=== PATIENT | male | born 1980 | race Caucasian/White ===

== ENCOUNTER 2021-03-10 11:26 | Inpatient (IN) ==
[2021-03-10 17:35] LABS: Basophils % 0.1 % (0.0-0.8); Hematocrit 42.5 VOL% (42.0-52.0); Hemoglobin 14.4 GM/DL (14.0-18.0); Immature Granulocytes Absolute 0.16 #; Lymphocytes # 0.8 10*3/uL (1.4-4.0); Lymphocytes % 5.1 % (21.2-54.2); Mean Corpuscular HGB Conc 33.9 GM/DL (32-36); Mean Corpuscular Volume 88.2 FL (87-102); Monocytes % 2.7 % (1.7-12.7); Neutrophils % 91.1 % (38.7-73.9); Platelet Count 433 T/CUMM (130-400); Red Blood Count 4.82 MC/CUMM (3.8-5.5); Red Cell Distribution Width 12.3 % (9.3-17.3); White Blood Count 15.6 T/CUMM (4-12)
[2021-03-10 17:57] LABS: Lymphocytes 5 % (20-55); Microcytosis Slight; Platelet Estimate Increased; Segmented Neutrophils 92 % (50-85); Total Cells Counted 100
[2021-03-10 18:01] LABS: Albumin 3.2 G/DL (3.4-5.0); Bilirubin,Total 0.4 MG/DL (0.20-1.00); Osmolality,Calculated 274.1 MOS/KG (273-304); Potassium 4.4 MMOL/L (3.5-5.1); Total Protein 7.8 G/DL (6.4-8.2)
[2021-03-10 18:12] LABS: Bilirubin,Urine Negative (Negative); Blood, Urine Small mg/dL (Negative); Glucose,Urine (UA) Negative (Negative); Ketones,Urine Negative (Negative); Mucus,Urine Occasional /LPF (Occasional); Nitrite,Urine Negative (Negative); Protein,Urine 100 MG/DL; RBC,Urine 3 /HPF (0-4); Urine Appearance CLEAR (Clear); Urine Color Amber (Yellow); Urine Specific Gravity 1.033 (1.001-1.035)
[2021-03-10 18:15] LABS: Barbiturates Screen,Urine Negative (Negative); Benzodiazepines Screen,Urine Negative (Negative); Cannabinoid Screen,Urine Negative (Negative); Opiate Screen,Urine Negative (Negative); Phencyclidine Screen,Urine Negative (Negative)
[2021-03-10 18:22] LABS: Ferritin 963.8 ng/ml (26-388)
[2021-03-10] MEDS ORDERED: GLUCAGON 1 MG VIAL IM PRN (18:31)
[2021-03-10] MEDS ORDERED: DEXTROSE 50% 25 GM/50 ML VIAL IV PRN (18:31)
[2021-03-10] MEDS ORDERED: ONDANSETRON 4 MG/2 ML VIAL IV PRN (18:31)
[2021-03-10] MEDS ORDERED: ACETAMINOPHEN 325 MG TABLET PO PRN (18:31)
[2021-03-10] MEDS ORDERED: REMDESIVIR 200 MG in SODIUM CHLORIDE 0.9% 210 ML IV ONE (19:00)
[2021-03-10] MEDS: cefTRIAXone 2,000 MG in SODIUM CHLORIDE 0.9% 100 ML IV SCH (19:26)
[2021-03-10] MEDS ORDERED: ALBUTEROL/IPRATROPIUM 3 ML NEB RESP TX ONE (19:30)
[2021-03-10] MEDS: ENOXAPARIN 40 MG/0.4 ML SYRINGE SUBCUT SCH (21:46)
[2021-03-11 04:51] LABS: Basophils % 0.3 % (0.0-0.8); Eosinophils % 0.3 % (0.00-10.9); Hematocrit 40.6 VOL% (42.0-52.0); Hemoglobin 13.9 GM/DL (14.0-18.0); Lymphocytes # 0.8 10*3/uL (1.4-4.0); Lymphocytes % 5.3 % (21.2-54.2); Mean Corpuscular HGB Conc 34.2 GM/DL (32-36); Mean Corpuscular Volume 90.6 FL (87-102); Mean Platelet Volume 9.2 FL (9.6-12.0); Monocytes % 2.8 % (1.7-12.7); Neutrophils % 89.3 % (38.7-73.9); Platelet Count 392 T/CUMM (130-400); Red Blood Count 4.48 MC/CUMM (3.8-5.5); Red Cell Distribution Width 12.1 % (9.3-17.3); White Blood Count 14.7 T/CUMM (4-12)
[2021-03-11 05:05] LABS: Calcium 8.4 MG/DL (8.5-10.1); Osmolality,Calculated 282.4 MOS/KG (273-304); Potassium 4.8 MMOL/L (3.5-5.1)
[2021-03-11 05:17] LABS: Ferritin 993.4 ng/ml (26-388)
[2021-03-11] MEDS: ZINC SULFATE 220 MG CAPSULE PO SCH (08:50)
[2021-03-11] MEDS: AZITHROMYCIN 250 MG TABLET PO SCH (08:50)
[2021-03-11] MEDS: FAMOTIDINE 20 MG TABLET PO SCH ×3 (08:50→20:36)
[2021-03-11] MEDS: DEXAMETHASONE 10 MG/1 ML VIAL IV SCH ×4 (08:50→20:37)
[2021-03-11] MEDS: ASCORBIC ACID 500 MG TABLET PO SCH ×2 (08:50→20:37)
[2021-03-11] MEDS: CHOLECALCIFEROL 5,000 UNIT TABLET PO SCH (08:50)
[2021-03-11] MEDS: CETIRIZINE 10 MG TABLET PO SCH (08:50)
[2021-03-11] MEDS ORDERED: DEXAMETHASONE INJ 10 MG in SODIUM CHLORIDE 0.9% 50 ML IV SCH (09:00)
[2021-03-11] MEDS: ALBUTEROL INHALER 18 GM INH SCH ×3 (09:30→20:38)
[2021-03-11 09:40] LABS: Alanine Aminotransferase 50 U/L (16-61); Aspartate Amino Transferase 44 U/L (0-37)
[2021-03-11] MEDS: IVERMECTIN 3 MG TABLET PO SCH (16:50)
[2021-03-11] MEDS ORDERED: DEXAMETHASONE 10 MG/1 ML VIAL IV SCH (18:00)
[2021-03-11] MEDS ORDERED: REMDESIVIR 100 MG in SODIUM CHLORIDE 0.9% 100 ML IV SCH (19:00)
[2021-03-11] MEDS: cefTRIAXone 2,000 MG in SODIUM CHLORIDE 0.9% 100 ML IV SCH (20:35)
[2021-03-11] MEDS: MELATONIN 3 MG TABLET PO SCH (20:36)
[2021-03-11] MEDS: ENOXAPARIN 40 MG/0.4 ML SYRINGE SUBCUT SCH (20:36)
[2021-03-12] MEDS: ALBUTEROL INHALER 18 GM INH SCH ×4 (00:05→18:18)
[2021-03-12] MEDS: DEXAMETHASONE 10 MG/1 ML VIAL IV SCH ×6 (00:05→20:27)
[2021-03-12 06:56] LABS: Basophils # 0.1 10*3/uL (0.0-0.2); Basophils % 0.6 % (0.0-0.8); Hemoglobin 14.3 GM/DL (14.0-18.0); Immature Granulocytes % 5.3 %; Immature Granulocytes Absolute 0.64 #; Lymphocytes # 0.9 10*3/uL (1.4-4.0); Lymphocytes % 7.6 % (21.2-54.2); Mean Corpuscular HGB Conc 34.9 GM/DL (32-36); Mean Corpuscular Volume 88.9 FL (87-102); Mean Platelet Volume 9.4 FL (9.6-12.0); Monocytes % 3.6 % (1.7-12.7); Neutrophils % 82.9 % (38.7-73.9); Platelet Count 526 T/CUMM (130-400); Red Blood Count 4.61 MC/CUMM (3.8-5.5); Red Cell Distribution Width 11.9 % (9.3-17.3); White Blood Count 12.1 T/CUMM (4-12)
[2021-03-12 07:13] LABS: Calcium 8.8 MG/DL (8.5-10.1); Osmolality,Calculated 279.8 MOS/KG (273-304); Potassium 4.2 MMOL/L (3.5-5.1)
[2021-03-12 07:16] LABS: Ferritin 997.4 ng/ml (26-388)
[2021-03-12 07:32] LABS: Band Neutrophils 1 % (0-10); Lymphocytes 8 % (20-55); Segmented Neutrophils 85 % (50-85); Total Cells Counted 100
[2021-03-12 07:33] LABS: Microcytosis 1+
[2021-03-12 07:34] LABS: Alanine Aminotransferase 40 U/L (16-61); Aspartate Amino Transferase 24 U/L (0-37)
[2021-03-12] MEDS: FAMOTIDINE 20 MG TABLET PO SCH ×2 (08:25→20:27)
[2021-03-12] MEDS: AZITHROMYCIN 250 MG TABLET PO SCH (08:26)
[2021-03-12] MEDS: ZINC SULFATE 220 MG CAPSULE PO SCH (08:26)
[2021-03-12] MEDS: ASCORBIC ACID 500 MG TABLET PO SCH ×2 (08:26→20:27)
[2021-03-12] MEDS: guaiFENesin/DM ER 600-30 MG TABLET PO PRN (08:26)
[2021-03-12] MEDS: CHOLECALCIFEROL 5,000 UNIT TABLET PO SCH (08:26)
[2021-03-12] MEDS: CETIRIZINE 10 MG TABLET PO SCH (08:26)
[2021-03-12] MEDS: IVERMECTIN 3 MG TABLET PO SCH (10:24)
[2021-03-12] MEDS: ENOXAPARIN 40 MG/0.4 ML SYRINGE SUBCUT SCH (18:17)
[2021-03-12] MEDS: cefTRIAXone 2,000 MG in SODIUM CHLORIDE 0.9% 100 ML IV SCH (18:18)
[2021-03-12] MEDS: MELATONIN 3 MG TABLET PO SCH (20:27)
[2021-03-13] MEDS: ALBUTEROL INHALER 18 GM INH SCH ×4 (01:05→18:20)
[2021-03-13] MEDS: DEXAMETHASONE 10 MG/1 ML VIAL IV SCH ×6 (02:05→20:46)
[2021-03-13 06:33] LABS: Basophils # 0.1 10*3/uL (0.0-0.2); Basophils % 0.6 % (0.0-0.8); Hematocrit 40.9 VOL% (42.0-52.0); Hemoglobin 14.5 GM/DL (14.0-18.0); Immature Granulocytes % 7.6 %; Immature Granulocytes Absolute 1.32 #; Lymphocytes # 1.4 10*3/uL (1.4-4.0); Lymphocytes % 8.1 % (21.2-54.2); Mean Corpuscular HGB Conc 35.5 GM/DL (32-36); Mean Corpuscular Volume 88.3 FL (87-102); Mean Platelet Volume 9.5 FL (9.6-12.0); Monocytes % 3.7 % (1.7-12.7); Platelet Count 621 T/CUMM (130-400); Red Blood Count 4.63 MC/CUMM (3.8-5.5); Red Cell Distribution Width 11.9 % (9.3-17.3); White Blood Count 17.4 T/CUMM (4-12)
[2021-03-13 07:01] LABS: Calcium 8.8 MG/DL (8.5-10.1); Osmolality,Calculated 284.5 MOS/KG (273-304); Potassium 4.1 MMOL/L (3.5-5.1)
[2021-03-13 07:04] LABS: Anisocytosis Slight; Band Neutrophils 7 % (0-10); Lymphocytes 13 % (20-55); Metamyelocytes 4 %; Platelet Estimate Increased; Segmented Neutrophils 70 % (50-85); Total Cells Counted 100
[2021-03-13] MEDS: CHOLECALCIFEROL 5,000 UNIT TABLET PO SCH (09:15)
[2021-03-13] MEDS: guaiFENesin/DM ER 600-30 MG TABLET PO PRN (09:15)
[2021-03-13] MEDS: AZITHROMYCIN 250 MG TABLET PO SCH (09:15)
[2021-03-13] MEDS: ZINC SULFATE 220 MG CAPSULE PO SCH (09:16)
[2021-03-13] MEDS: ASCORBIC ACID 500 MG TABLET PO SCH ×2 (09:16→20:46)
[2021-03-13] MEDS: CETIRIZINE 10 MG TABLET PO SCH (09:16)
[2021-03-13] MEDS: IVERMECTIN 3 MG TABLET PO SCH (09:16)
[2021-03-13] MEDS: FAMOTIDINE 20 MG TABLET PO SCH ×2 (09:16→20:46)
[2021-03-13] MEDS: cefTRIAXone 2,000 MG in SODIUM CHLORIDE 0.9% 100 ML IV SCH (18:20)
[2021-03-13] MEDS: ENOXAPARIN 40 MG/0.4 ML SYRINGE SUBCUT SCH (18:20)
[2021-03-13] MEDS: MELATONIN 3 MG TABLET PO SCH (20:46)
[2021-03-14] MEDS: DEXAMETHASONE 10 MG/1 ML VIAL IV SCH ×6 (01:35→22:09)
[2021-03-14] MEDS: ALBUTEROL INHALER 18 GM INH SCH ×4 (01:38→22:11)
[2021-03-14] MEDS: FAMOTIDINE 20 MG TABLET PO SCH ×2 (09:11→22:10)
[2021-03-14] MEDS: IVERMECTIN 3 MG TABLET PO SCH (09:11)
[2021-03-14] MEDS: CETIRIZINE 10 MG TABLET PO SCH (09:11)
[2021-03-14] MEDS: ZINC SULFATE 220 MG CAPSULE PO SCH (09:11)
[2021-03-14] MEDS: AZITHROMYCIN 250 MG TABLET PO SCH (09:11)
[2021-03-14] MEDS: ASCORBIC ACID 500 MG TABLET PO SCH ×2 (09:11→22:10)
[2021-03-14] MEDS: CHOLECALCIFEROL 5,000 UNIT TABLET PO SCH (09:12)
[2021-03-14] MEDS: cefTRIAXone 2,000 MG in SODIUM CHLORIDE 0.9% 100 ML IV SCH (22:09)
[2021-03-14] MEDS: MELATONIN 3 MG TABLET PO SCH (22:10)
[2021-03-14] MEDS: guaiFENesin/DM ER 600-30 MG TABLET PO PRN (22:10)
[2021-03-14] MEDS: ENOXAPARIN 40 MG/0.4 ML SYRINGE SUBCUT SCH (22:10)
[2021-03-15] MEDS: DEXAMETHASONE 10 MG/1 ML VIAL IV SCH ×6 (02:24→23:50)
[2021-03-15] MEDS: ALBUTEROL INHALER 18 GM INH SCH ×4 (02:25→19:28)
[2021-03-15] MEDS: CHOLECALCIFEROL 5,000 UNIT TABLET PO SCH (08:38)
[2021-03-15] MEDS: ASCORBIC ACID 500 MG TABLET PO SCH ×2 (08:39→20:40)
[2021-03-15] MEDS: CETIRIZINE 10 MG TABLET PO SCH (08:39)
[2021-03-15] MEDS: ZINC SULFATE 220 MG CAPSULE PO SCH (08:39)
[2021-03-15] MEDS: IVERMECTIN 3 MG TABLET PO SCH (08:39)
[2021-03-15] MEDS: FAMOTIDINE 20 MG TABLET PO SCH ×2 (08:40→20:40)
[2021-03-15] MEDS: AZITHROMYCIN 250 MG TABLET PO SCH (09:42)
[2021-03-15] MEDS: ENOXAPARIN 40 MG/0.4 ML SYRINGE SUBCUT SCH (20:40)
[2021-03-15] MEDS: MELATONIN 3 MG TABLET PO SCH (20:40)
[2021-03-15] MEDS: cefTRIAXone 2,000 MG in SODIUM CHLORIDE 0.9% 100 ML IV SCH (20:40)
[2021-03-16] MEDS: ALBUTEROL INHALER 18 GM INH SCH ×2 (01:18→08:45)
[2021-03-16] MEDS: CETIRIZINE 10 MG TABLET PO SCH (08:44)
[2021-03-16] MEDS: CHOLECALCIFEROL 5,000 UNIT TABLET PO SCH (08:44)
[2021-03-16] MEDS: ASCORBIC ACID 500 MG TABLET PO SCH (08:44)
[2021-03-16] MEDS: DEXAMETHASONE 10 MG/1 ML VIAL IV SCH (08:44)
[2021-03-16] MEDS: FAMOTIDINE 20 MG TABLET PO SCH (08:44)
[2021-03-16] MEDS: ZINC SULFATE 220 MG CAPSULE PO SCH (08:44)
[2021-03-16 12:36] VITALS: BP 125/77
== END 2021-03-16 15:55 | disposition home or self-care (01) | DRG 177 ==
LOC: N.ED 11:26 → N.EDINP 18:31 → SUATTDRO 18:31 → N.2E 03-11 18:17
PROVIDERS: ADMIT Hospitalist; ATTEND Phlebology